=== PATIENT | female | born 1965 | race Caucasian/White ===

== ENCOUNTER 2021-06-14 16:42 | Emergency (ER) | payer MEDICAID ==
[~2021-06-14] VITALS: Ht 149.9 cm; Wt 73.5 kg
[2021-06-14 17:19] VITALS: BP 137/80
[2021-06-14] MEDS ORDERED: ACETAMINOPHEN EXTRA STRENGTH 500 MG TAB ONE (19:09)
[2021-06-14] MEDS ORDERED: ONDANSETRON 4 MG ODT ONE (19:10)
--- NOTE | 2021-06-14 19:14 | NUR ---
pt returned from triage room back to lobby.
[2021-06-14] MEDS: ONDANSETRON 4 MG ODT PO ONE (19:15)
[2021-06-14] MEDS: ACETAMINOPHEN EXTRA STRENGTH 500 MG TAB PO ONE (19:15)
--- NOTE | 2021-06-14 19:34 | NUR ---
PTS LABS BEING DRAWN IN A.
[2021-06-14 19:48] LABS: BASOPHILS % (AUTO) 0.6 % (0.0-2.0); EOSINOPHILS # (AUTO) 0.1 K/uL (0-0.4); EOSINOPHILS % (AUTO) 2.2 % (0.0-4.0); HEMATOCRIT 39.8 % (36-48); HEMOGLOBIN 13.5 g/dL (12.0-16.0); LYMPHOCYTES # (AUTO) 2.7 K/uL (2.5-16.5); MEAN CORPUSCULAR HEMOGLOBIN 30 pg (27-31); MEAN CORPUSCULAR HGB CONC 34 g/dL (33-37); MEAN CORPUSCULAR VOLUME 87.8 fL (80-94); MONOCYTES # (AUTO) 0.5 K/uL (0.8-1.0); NEUTROPHILS # (AUTO) 3.4 K/uL (1.8-7.7); NEUTROPHILS % (AUTO) 50.2 % (42.2-75.2); PLATELET COUNT (AUTO) 161 K/uL (140-450); RED BLOOD CELL COUNT(AUTO) 4.53 MIL/uL (4.20-5.40); RED CELL DISTRIBUTION WIDTH 13.1 % (11.6-13.7); WHITE BLOOD COUNT (AUTO) 6.8 K/uL (4.8-10.8)
[2021-06-14 19:58] LABS: ALBUMIN 4.3 g/dL (3.4-5.0); ANION GAP 13.8 (8-16); CARBON DIOXIDE 27.2 mmol/L (21-32); CREATININE 1.4 mg/dL (0.6-1.3); TOTAL BILIRUBIN 0.6 mg/dL (0.0-1.0)
[2021-06-14] MEDS ORDERED: ONDA-24 PO (20:25)
[2021-06-14] MEDS ORDERED: ACET-10509 PO (20:25)
--- NOTE | 2021-06-14 20:32 | NUR ---
Patient discharged with v/s stable. Written and verbal after care instructions given and explained. Patient alert, oriented and verbalized understanding of instructions. Ambulatory with steady gait. All questions addressed prior to discharge. ID band removed. Patient advised to follow up with PMD. Rx of ZOFRAN ODT AND TYLENOL EXTRA STRENGTH TAB given. Patient educated on indication of medication including possible reaction and side effects. Opportunity to ask questions provided and answered.
[2021-06-14 20:33] VITALS: BP 137/80
--- NOTE | 2021-06-14 20:34 | NUR ---
SEEN BY ABE NO NURSING INTERVENTIONS NEEDED FOR PATIENT
== END 2021-06-14 20:32 | disposition home or self-care (01) ==
LOC: MED 16:42
DX: M54.6 Pain in thoracic spine (principal); R14.0 Abdominal distension (gaseous); R10.9 Unspecified abdominal pain; Z88.6 Allergy status to analgesic agent
CPT/HCPCS: 36415; 80053; 81002; 83690; 85025; 93005; 99284; Q0162

== ENCOUNTER 2021-12-02 10:02 | Emergency (ER) | payer MEDICAID, OTHER ==
[~2021-12-02] VITALS: Ht 152.4 cm; Wt 73.1 kg
[~2021-12-02 10:02] MED LIST: ACET-10509 PO; ONDA-188 PO
[2021-12-02 10:03] VITALS: BP 156/81
--- NOTE | 2021-12-02 10:30 | NUR ---
pt ambulated to bed 12
--- NOTE | 2021-12-02 10:41 | NUR ---
DR. Marsh at the bedside
--- NOTE | 2021-12-02 11:00 | NUR ---
LAB AT BEDSIDE
--- NOTE | 2021-12-02 11:01 | NUR ---
56 y/o female bib self c/o upper abd pain, n/v x 6 days after eating. Pt reports making self vomit after eating x3 to relief pain. Pt reports feeling gassy and occasionally burps, had diarrhea x1 since last sunday. Last bowel movement was 12/01/21; ABD is soft and non tender. Respirations are even and unlabored. PMEDHX: pancreatitis, htn Allergies: sulfas, kiwi
[2021-12-02] MEDS ORDERED: METO-486 PO (11:04)
[2021-12-02 11:13] LABS: APPEARANCE,URINE CLEAR (CLEAR); BILIRUBIN,URINE NEGATIVE (NEGATIVE); BLOOD, URINE NEGATIVE (NEGATIVE); COLOR,URINE YELLOW (YELLOW); LEUKOCYTE ESTERASE ,URINE TRACE (NEGATIVE); NITRITE, URINE NEGATIVE (NEGATIVE); UGLUCOSE NEGATIVE (NEGATIVE)
[2021-12-02 11:31] LABS: BASOPHILS % (AUTO) 0.7 % (0.0-2.0); EOSINOPHILS # (AUTO) 0.1 K/uL (0-0.4); EOSINOPHILS % (AUTO) 3.1 % (0.0-4.0); HEMATOCRIT 38.4 % (36-48); HEMOGLOBIN 13.1 g/dL (12.0-16.0); LYMPHOCYTES # (AUTO) 1.5 K/uL (2.5-16.5); LYMPHOCYTES % (AUTO) 31.7 % (20.5-51.1); MEAN CORPUSCULAR HEMOGLOBIN 29 pg (27-31); MEAN CORPUSCULAR HGB CONC 34 g/dL (33-37); MEAN CORPUSCULAR VOLUME 86.6 fL (80-94); MONOCYTES # (AUTO) 0.3 K/uL (0.8-1.0); MONOCYTES % (AUTO) 6.3 % (1.7-9.3); NEUTROPHILS # (AUTO) 2.7 K/uL (1.8-7.7); NEUTROPHILS % (AUTO) 58.2 % (42.2-75.2); PLATELET COUNT (AUTO) 155 K/uL (140-450); RED BLOOD CELL COUNT(AUTO) 4.44 MIL/uL (4.20-5.40); WHITE BLOOD COUNT (AUTO) 4.6 K/uL (4.8-10.8)
[2021-12-02] MEDS ORDERED: METOCLOPRAMIDE 10 MG TAB PO ONE (11:35)
[2021-12-02 12:09] LABS: RBC,URINE 0-5 /HPF (0-5); WBC,URINE 0-5 /HPF (0-5)
[2021-12-02 12:10] LABS: CALCIUM OXALATE CRYSTALS,UR None Seen /HPF (None Seen); COARSE GRANULAR CASTS,URINE None Seen /LPF (None Seen); FINE GRANULAR CASTS,URINE None Seen /LPF (None Seen); HYALINE CASTS, URINE None Seen /LPF (None Seen); OTHER CASTS, URINE None Seen /LPF (None Seen); OTHER CRYSTALS,URINE None Seen /HPF (None Seen); RED BLOOD CELL CASTS,URINE None Seen /LPF (None Seen); TRICHOMONAS,URINE None Seen /HPF (None Seen); TRIPLE PHOSPHATE CRYSTAL,UR None Seen /HPF (None Seen); URIC ACID CRYSTALS,URINE None Seen /HPF (None Seen); URINE AMORPHOUS URATE None Seen /HPF (None Seen); WAXY CASTS,URINE None Seen /LPF (None Seen); YEAST,URINE None Seen /HPF (None Seen)
[2021-12-02 12:16] LABS: ALBUMIN 3.8 g/dL (3.4-5.0); ANION GAP 11.3 (8-16); CARBON DIOXIDE 29.3 mmol/L (21-32); CREATININE 1.1 mg/dL (0.6-1.3); POTASSIUM 4.6 mmol/L (3.5-5.1); TOTAL BILIRUBIN 0.7 mg/dL (0.0-1.0)
--- NOTE | 2021-12-02 13:50 | NUR ---
Patient discharged with v/s stable. Written and verbal after care instructions given and explained about gerd. Patient alert, oriented and verbalized understanding of instructions. Ambulatory with steady gait. All questions addressed prior to discharge. ID band removed. Patient advised to follow up with PMD. Rx of reglan given. Patient educated on indication of medication including possible reaction and side effects. Opportunity to ask questions provided and answered.
[2021-12-02 14:00] VITALS: BP 134/68
== END 2021-12-02 13:57 | disposition home or self-care (01) ==
LOC: MED 10:02
DX: R10.13 Epigastric pain (principal); R14.0 Abdominal distension (gaseous); R11.2 Nausea with vomiting, unspecified; K21.9 Gastro-esophageal reflux disease without esophagitis; I10 Essential (primary) hypertension; Z79.899 Other long term (current) drug therapy; Z88.6 Allergy status to analgesic agent
CPT/HCPCS: 36415; 80053; 81001; 83690; 85025; 99285; J8597

== ENCOUNTER 2022-01-27 09:40 | Emergency (ER) | payer OTHER ==
[~2022-01-27] VITALS: Ht 152.4 cm; Wt 71.2 kg
[~2022-01-27 09:40] MED LIST changes: +METO-486 PO
[2022-01-27 09:47] VITALS: BP 134/87
--- NOTE | 2022-01-27 09:53 | NUR ---
PT TO AWAIT IN LOBBY
--- NOTE | 2022-01-27 10:09 | NUR ---
PT W/C ASSISTED TO BED 03
[2022-01-27] MEDS ORDERED: ACET-9527 PO (10:44)
[2022-01-27 11:20] VITALS: BP 128/80
[2022-01-27] MEDS ORDERED: MECL-231 PO (18:09)
== END 2022-01-27 11:19 | disposition home or self-care (01) ==
LOC: MED 09:40
DX: S52.511A Displaced fracture of right radial styloid process, initial encounter for closed fracture (principal); S60.212A Contusion of left wrist, initial encounter; S30.0XXA Contusion of lower back and pelvis, initial encounter; S06.0X0A Concussion without loss of consciousness, initial encounter; R42 Dizziness and giddiness; I10 Essential (primary) hypertension; Z98.890 Other specified postprocedural states; W01.198A Fall on same level from slipping, tripping and stumbling with subsequent striking against other object, initial encounter; Y93.01 Activity, walking, marching and hiking; Y92.89 Other specified places as the place of occurrence of the external cause; Y99.8 Other external cause status
CPT/HCPCS: 73110; 73130; 99284

== ENCOUNTER 2022-01-27 15:10 | Emergency (ER) | payer OTHER ==
[~2022-01-27] VITALS: Ht 152.4 cm; Wt 70.8 kg
[~2022-01-27 15:10] MED LIST changes: +ACET-9527 PO
[2022-01-27 15:33] VITALS: BP 102/61
--- NOTE | 2022-01-27 15:40 | NUR ---
PT W/C ASSISTED TO BED
--- NOTE | 2022-01-27 16:02 | NUR ---
pt c/o dizziness and headache. seen this am dx with right hand fx. sent by pcp for dizziness.
[2022-01-27] MEDS ORDERED: ONDANSETRON 4 MG/2 ML VIAL IVP ONE (16:20)
[2022-01-27] MEDS ORDERED: KETOROLAC 30 MG/ML VIAL IVP ONE (16:20)
[2022-01-27] MEDS ORDERED: NACL 0.9% 1,000 ML IV ONE (16:20)
[2022-01-27] MEDS ORDERED: MORPHINE SULFATE 4 MG/ML SYR IVP ONE ×2 (16:25→17:40)
[2022-01-27] MEDS ORDERED: MECL-231 PO (18:09)
--- NOTE | 2022-01-27 18:17 | NUR ---
pt resting in gurney remedicated for pain. nad . safety maintained
[2022-01-27 18:21] VITALS: BP 134/70
--- NOTE | 2022-01-27 18:42 | NUR ---
Patient discharged with v/s stable. Written and verbal after care instructions given and explained. Patient alert, oriented and verbalized understanding of instructions. Ambulatory with steady gait. All questions addressed prior to discharge. ID band removed. Patient advised to follow up with PMD. Rx of antivert given. Patient educated on indication of medication including possible reaction and side effects. Opportunity to ask questions provided and answered.
== END 2022-01-27 18:42 | disposition home or self-care (01) ==
LOC: MED 15:10
DX: R42 Dizziness and giddiness (principal); R11.0 Nausea; M25.531 Pain in right wrist; I10 Essential (primary) hypertension; Z79.899 Other long term (current) drug therapy; Z79.891 Long term (current) use of opiate analgesic; Z88.6 Allergy status to analgesic agent; Z88.2 Allergy status to sulfonamides; Z88.8 Allergy status to other drugs, medicaments and biological substances
CPT/HCPCS: 82948; 96361; 96374; 96375; 96376; 99284; J2270; J2405

== ENCOUNTER 2022-01-29 07:46 | Emergency (ER) | payer OTHER ==
[~2022-01-29] VITALS: Ht 152.4 cm; Wt 71.2 kg
[~2022-01-29 07:46] MED LIST changes: +MECL-231 PO
[2022-01-29 07:47] VITALS: BP 150/91
--- NOTE | 2022-01-29 07:54 | NUR ---
PT AMBULATED TO ER BED 3 WITH A STEADY GAIT.
--- NOTE | 2022-01-29 08:02 | NUR ---
DR. LOPEZ AT PT BEDSIDE FOR FURTHER EVALUATION.
[2022-01-29] MEDS ORDERED: MORPHINE SULFATE 4 MG/ML SYR IM ONE (08:05)
--- NOTE | 2022-01-29 08:06 | NUR ---
56 Y/O FEMALE BIB SELF FOR RECHECK TO RIGHT HAND. PT STATES RIGHT WRIST FRACTURE X3 DAYS AGO. TODAY PAIN TO RIGHT ARM 8/10, NON-PITTING EDEMA NOTED TO RIGHT HAND +3, CAP REFIL <3SECONDS. PT STATES "THE SPLINT FEELS TOO TIGHT". DENIES FEVER/CHILLS. DENIES N/V/D. DENIES PMH ALLERGIES: IBUPROFEN, SULFA, DARVOCET
[2022-01-29] MEDS ORDERED: MORPHINE SULFATE 5 MG/ML VIAL ONE (08:11)
--- NOTE | 2022-01-29 08:54 | NUR ---
PT RE-SPLINTED IN RIGHT 4" ORTHO-GLASS SUGARTONG SPLINT AND WRAPPED WITH 3" LUZ ELENA WRAPS X3. CMS WNL BEFORE AND AFTER AND PT STATED THAT THEY TOLERATED SPLINT WELL, ERMD NOTIFIED AMD APRROVED SPLINT. PT ALSO PLACED IN RIGHT SLING.
[2022-01-29 09:00] VITALS: BP 134/81
--- NOTE | 2022-01-29 09:00 | NUR ---
Patient discharged with v/s stable. Written and verbal after care instructions given FOR WRIST FRACTURE and explained. Patient verbalized understanding. Ambulatory with steady gait. All questions addressed prior to discharge. Advised to follow up with PMD.
== END 2022-01-29 09:00 | disposition home or self-care (01) ==
LOC: MED 07:46
DX: S62.101A Fracture of unspecified carpal bone, right wrist, initial encounter for closed fracture (principal); I10 Essential (primary) hypertension; W19.XXXA Unspecified fall, initial encounter; Y93.89 Activity, other specified; Y92.89 Other specified places as the place of occurrence of the external cause; Y99.8 Other external cause status
CPT/HCPCS: 96372; 99283; J2270

== ENCOUNTER 2022-05-29 09:17 | Emergency (ER) | payer OTHER ==
[~2022-05-29] VITALS: Ht 152.4 cm; Wt 73.9 kg
[2022-05-29 09:24] VITALS: BP 144/83
--- NOTE | 2022-05-29 09:29 | NUR ---
AMBULATED TO BED 9
--- NOTE | 2022-05-29 09:40 | NUR ---
56 Y/O FEMALE BIB SELF C/O OF RIGHT LOWER BACK PAIN X2 DAYS, WAS SEEN IN URGENT CARE FOR GENERALIZED BACK PAIN 4DAYS AGO AND WAS PRESCRIBED FLEXERIL WITH MINIMAL EFFECT. PER PT SHE WENT TO GET A MASSAGE AND UPPER BACK PAIN DISAPPEARED BUT LOWER BACK PAIN REMAINS. DENIES ANY OTHER URINARY S/S, DENIES ANY N/V/D/ABD PAIN ALLERGY: SULFA, DARVOCET, MOTRIN PMH: HTN
--- NOTE | 2022-05-29 09:49 | NUR ---
DR ARANDA AT BEDSIDE FOR EVAL
[2022-05-29] MEDS ORDERED: CIPR500T4 PO (10:01)
[2022-05-29] MEDS ORDERED: ACET-8386 PO (10:01)
--- NOTE | 2022-05-29 10:09 | NUR ---
Patient discharged with v/s stable. Written and verbal after care instructions ABOUT UTI given and explained. Patient alert, oriented and verbalized understanding of instructions. Ambulatory with steady gait. All questions addressed prior to discharge. ID band removed. Patient advised to follow up with PMD. Rx of CIPRO, NORCO 5-325 given. Patient educated on indication of medication including possible reaction and side effects. Opportunity to ask questions provided and answered.
== END 2022-05-29 10:09 | disposition home or self-care (01) ==
LOC: MED 09:17
DX: M54.50 Low back pain, unspecified (principal); N39.0 Urinary tract infection, site not specified; I10 Essential (primary) hypertension; Z90.49 Acquired absence of other specified parts of digestive tract; Z98.890 Other specified postprocedural states; Z79.899 Other long term (current) drug therapy; Z90.710 Acquired absence of both cervix and uterus; Z88.6 Allergy status to analgesic agent
CPT/HCPCS: 81002; 99283

== ENCOUNTER 2022-06-19 11:29 | Emergency (ER) | payer OTHER ==
[~2022-06-19 11:29] MED LIST changes: +ACET-8386 PO; +CIPR500T4 PO
--- NOTE | 2022-06-19 11:40 | NUR ---
name called, no answer
--- NOTE | 2022-06-19 11:42 | NUR ---
name called, no answer
--- NOTE | 2022-06-19 11:47 | NUR ---
name called, no answer
--- NOTE | 2022-06-19 11:50 | NUR ---
lwbs at this time
== END 2022-06-19 11:50 | disposition left against medical advice (07) ==
LOC: MED 11:29
DX: R10.9 Unspecified abdominal pain (principal); Z53.21 Procedure and treatment not carried out due to patient leaving prior to being seen by health care provider

== ENCOUNTER 2023-07-16 09:35 | Emergency (ER) | payer OTHER ==
[~2023-07-16] VITALS: Ht 149.9 cm; Wt 69.4 kg
[~2023-07-16 09:35] MED LIST changes: -ACET-8386 PO; +ACET-8905 PO
[2023-07-16 09:53] VITALS: BP 174/86; PULSE 68; RESP 16; TEMP 97; O2SAT 98
[2023-07-16] MEDS ORDERED: LIDOCAINE MPF 1% 10 MG/ML VIAL INJ ONE (11:15)
[2023-07-16 12:01] VITALS: O2SAT 98
[2023-07-16 12:06] VITALS: BP 163/86; PULSE 86; RESP 16; TEMP 97
[2023-07-16] MEDS ORDERED: LID5T TP (12:11)
[2023-07-16 12:16] LABS: APPEARANCE,URINE CLEAR (CLEAR); BILIRUBIN,URINE NEGATIVE (NEGATIVE); BLOOD, URINE NEGATIVE (NEGATIVE); COLOR,URINE YELLOW (YELLOW); LEUKOCYTE ESTERASE ,URINE TRACE (NEGATIVE); NITRITE, URINE NEGATIVE (NEGATIVE); PROTEIN,URINE NEGATIVE (NEGATIVE); UGLUCOSE NEGATIVE (NEGATIVE); UROBILINOGEN,URINE 0.2 EU/dL (0.2 - 1)
[2023-07-16 12:26] VITALS: O2SAT 98
[2023-07-16 12:35] LABS: BACTERIA,URINE OCCASSIONAL /HPF (None Seen); RBC,URINE 0-5 /HPF (0-5); SQUAMOUS EPITHELIAL CELL,UR 0-3 (FEW) /LPF (0-3 (FEW)); WBC,URINE 0-5 /HPF (0-5)
== END 2023-07-16 12:25 | disposition home or self-care (01) ==
LOC: MED 09:35
DX: M62.830 Muscle spasm of back (principal); R10.9 Unspecified abdominal pain; I12.9 Hypertensive chronic kidney disease with stage 1 through stage 4 chronic kidney disease, or unspecified chronic kidney disease; N18.9 Chronic kidney disease, unspecified; Z90.49 Acquired absence of other specified parts of digestive tract; Z98.890 Other specified postprocedural states; Z90.710 Acquired absence of both cervix and uterus; Z79.899 Other long term (current) drug therapy; Z79.2 Long term (current) use of antibiotics; Z88.6 Allergy status to analgesic agent
CPT/HCPCS: 20552; 81001; 93005; 99284; J2001

== ENCOUNTER 2024-04-18 16:00 | Emergency (ER) | payer OTHER ==
[~2024-04-18] VITALS: Ht 152.4 cm; Wt 72.6 kg
[~2024-04-18 16:00] MED LIST changes: +LID5T TP
[2024-04-18 16:31] VITALS: BP 169/79; PULSE 63; RESP 18; TEMP 98.3; O2SAT 99
[2024-04-18 17:00] VITALS: O2SAT 97
[2024-04-18 17:18] LABS: BASOPHILS % (AUTO) 0.8 % (0.0-2.0); EOSINOPHILS # (AUTO) 0.1 K/uL (0-0.4); EOSINOPHILS % (AUTO) 2.7 % (0.0-4.0); HEMATOCRIT 37.3 % (36-48); HEMOGLOBIN 12.4 g/dL (12.0-16.0); LYMPHOCYTES # (AUTO) 1.7 K/uL (2.5-16.5); LYMPHOCYTES % (AUTO) 36.1 % (20.5-51.1); MEAN CORPUSCULAR HEMOGLOBIN 29 pg (27-31); MEAN CORPUSCULAR HGB CONC 33 g/dL (33-37); MEAN CORPUSCULAR VOLUME 87.8 fL (80-94); MONOCYTES # (AUTO) 0.3 K/uL (0.8-1.0); MONOCYTES % (AUTO) 6.3 % (1.7-9.3); NEUTROPHILS # (AUTO) 2.5 K/uL (1.8-7.7); NEUTROPHILS % (AUTO) 54.1 % (42.2-75.2); PLATELET COUNT (AUTO) 142 K/uL (140-450); RED BLOOD CELL COUNT(AUTO) 4.25 MIL/uL (4.20-5.40); RED CELL DISTRIBUTION WIDTH 13.3 % (11.6-13.7); WHITE BLOOD COUNT (AUTO) 4.6 K/uL (4.8-10.8)
[2024-04-18 17:19] LABS: BILIRUBIN,URINE NEGATIVE (NEGATIVE); BLOOD, URINE NEGATIVE (NEGATIVE); COLOR,URINE YELLOW (YELLOW); LEUKOCYTE ESTERASE ,URINE 1+ (NEGATIVE); NITRITE, URINE NEGATIVE (NEGATIVE); PROTEIN,URINE NEGATIVE (NEGATIVE); UGLUCOSE NEGATIVE (NEGATIVE); UROBILINOGEN,URINE 0.2 EU/dL (0.2 - 1)
[2024-04-18 17:21] LABS: APPEARANCE,URINE HAZY (CLEAR)
[2024-04-18 17:27] LABS: BACTERIA,URINE 2+ /HPF (None Seen); MUCUS,URINE None Seen /LPF (None Seen); RBC,URINE 0 /HPF (0-5); SQUAMOUS EPITHELIAL CELL,UR 4-10 (MOD) /LPF (0-3 (FEW)); WBC,URINE 0-5 /HPF (0-5)
[2024-04-18 17:31] LABS: ANION GAP 8.8 (8-16); CARBON DIOXIDE 30.2 mmol/L (21-32); CREATININE 1.1 mg/dL (0.6-1.3)
[2024-04-18 17:37] LABS: ALANINE AMINOTRANSFERASE 35 U/L (12-78); ALBUMIN 3.9 g/dL (3.4-5.0); ALKALINE PHOSPHATASE 79 U/L (50-136); ASPARTATE AMINOTRANSFERASE 29 U/L (15-37); BILIRUBIN,DIRECT 0.1 mg/dL (0.0-0.3); LIPASE 44 U/L (16-77); TOTAL BILIRUBIN 0.5 mg/dL (0.0-1.0); TOTAL PROTEIN, SERUM 7.3 g/dL (6.4-8.2)
[2024-04-18] MEDS ORDERED: DICYCLOMINE HCL LIQUID 10 MG/5 ML UDC ONE (17:51)
[2024-04-18] MEDS ORDERED: ALUMINUM HYD/MAG/SIMETHICONE 30 ML UDC ONE (17:51)
[2024-04-18] MEDS: DICYCLOMINE HCL LIQUID 20 MG, ALUMINUM HYD/MAG/SIMETHICONE 30 ML, LIDOCAINE VISCOUS 2% ... PO ONE (17:53)
[2024-04-18] MEDS: ONDANSETRON 4 MG ODT PO ONE (17:53)
[2024-04-18 18:07] VITALS: BP 157/74; PULSE 65; RESP 18; TEMP 98.2; O2SAT 97
[2024-04-18] MEDS ORDERED: ONDA-188 PO (19:23)
== END 2024-04-18 19:31 | disposition home or self-care (01) ==
LOC: MED 16:00
DX: K29.70 Gastritis, unspecified, without bleeding (principal); I10 Essential (primary) hypertension; Z90.710 Acquired absence of both cervix and uterus; Z90.49 Acquired absence of other specified parts of digestive tract; Z79.899 Other long term (current) drug therapy; Z88.2 Allergy status to sulfonamides; Z88.6 Allergy status to analgesic agent; Z88.5 Allergy status to narcotic agent
CPT/HCPCS: 36415; 71045; 80048; 80076; 81001; 83690; 84484; 85025; 87086; 87186; 93005; 99285; Q0162